=== PATIENT | male | born 1960 | race Caucasian/White ===

== ENCOUNTER 2024-11-13 09:58 | Emergency (ER) | payer OTHER ==
[~2024-11-13] VITALS: Ht 177.8 cm; Wt 88.6 kg
[2024-11-13 10:03] VITALS: TEMP 98
--- NOTE | 2024-11-13 10:10 | ELECTROCARDIOGRAPH REPORT ---
[facility] Test Date: 2024-11-13 Test Time: 10:00:56 Pat Name: PAVITHRA CUI Department: EMERGENCY ROOM Room: Gender: M Librarian Head: HUGH : 1960 Requested By: ANGELA MALONE Order Number: [id number] Reading MD: Measurements Intervals [place] Rate: 86 P: 62 CO: 155 QRS: 48 QRSD: 97 T: 32 QT: 361 QTc: 432 Interpretive Statements Sinus rhythm Please click the below link to view image of tracing.
[2024-11-13 10:38] LABS: MEAN PLATELET VOLUME 8.0 FL (7.4-10.4); RED CELL DISTRIBUTION WIDTH 12.3 % (11.5-14.5)
--- NOTE | 2024-11-13 10:58 | Physician Documentation ---
History of Present Illness ~ Chief Complaint: Shortness of Breath Stated Complaint: SOB Time Seen by MD: 10:45 Source: patient, family Mode of Arrival: POV Exam Limitations: no limitations HPI Patient who has been having some shortness of breath over the past month. It only happens when he is up and walking around or doing anything. At rest he feels fine. No chest pain. Mild cough since yesterday. Two months ago he did complete a 2 month cycle of radiation for prostate cancer. Back in June he was started on a medication to reduce his testosterone levels and 5 mg of prednisone daily. Does smoke marijuana most days. Quit tobacco smoking 13 years ago. Smoked 3/4 to a pack a day for 30 years. No swelling in his legs. Medication Reconciliation Allergies: Coded Allergies: No Known Allergies (Unverified , 11/13/24) Review of Systems All Other Systems at this time: Reviewed and Negative Physical Exam Vital Signs: Temperature: 98.0, Source: Temporal, Heart Rate: 87, Respiratory Rate: 19, BP: 122/78, Pulse Oximetry: 97, Weight: 88.640 General Appearance: alert Neck: normal inspection Respiratory: lungs clear, normal breath sounds, no respiratory distress Chest: no accessory muscle use Cardiovascular: regular rate, rhythm, no edema, no murmur Gastrointestinal: non-tender Extremities: normal inspection Skin: normal color, warm/dry Neurologic: oriented x4 Psychiatric: appropriate Progress Results/Orders Results/Orders Orders - ANGELA MALONE MD Chest,Single View (11/13/24 10:08) Monitor (11/13/24 10:08) Saline Lock (11/13/24 10:08) Oxygen (11/13/24 10:08) Covid19 Binax Poc Result Entry (11/13/24 10:47) Completed Orders - ANGELA MALONE MD Chest,Single View (11/13/24 10:08) Cbc/Diff (11/13/24 10:08) BMP (11/13/24 10:08) PBNP (11/13/24 10:08) Electrocardiogram (11/13/24 10:08) Hs Troponin I W Calculations (11/13/24 10:08) Hs Troponin I W Calculations (11/13/24 12:08) Hs Troponin I W Calculations (11/13/24 13:08) D-Dimer (11/13/24 10:47) Liver Panel (11/13/24 10:16) Vital Signs 11/13/24 11/13/24 11/13/24 11/13/24 10:03 10:50 11:12 13:31 Temp 98.0 Pulse 87 73 73 Resp 19 16 16 B/P (MAP) 122/78 130/70 (90) 123/76 Pulse Ox 97 98 96 O2 Flow Rate 0 Laboratory Tests Test 11/13/24 10:16 11/13/24 10:51 11/13/24 11:01 11/13/24 11:47 White Blood Count 5.7 Red Blood Count 4.20 L Hemoglobin 13.7 L Hematocrit 39.5 L Mean Corpuscular Volume 93.9 Mean Corpuscular Hemoglobin 32.6 H Mean Corpuscular Hemoglobin Concent 34.7 Red Cell Distribution Width 12.3 Platelet Count 198 Mean Platelet Volume 8.0 Neutrophils (%) (Auto) 89.5 H Lymphocytes (%) (Auto) 3.5 L Monocytes (%) (Auto) 4.5 Eosinophils (%) (Auto) 2.2 Basophils (%) (Auto) 0.3 Neutrophils # (Auto) 5.1 Lymphocytes # (Auto) 0.2 L Monocytes # (Auto) 0.3 Eosinophils # (Auto) 0.1 Basophils # (Auto) 0.0 CBC Comment Sodium Level 140 Potassium Level 4.0 Chloride Level 107 Carbon Dioxide Level 27.6 Anion Gap 5 L Blood Urea Nitrogen 14 Creatinine 0.87 Estimated GFR/1.73 m2 89 BUN/Creatinine Ratio 16.1 Glucose Level 98 Calcium Level 8.7 Total Bilirubin 1.5 H Direct Bilirubin 0.2 Aspartate Amino Transf (AST/SGOT) 16 Alanine Aminotransferase (ALT/SGPT) 21 Alkaline Phosphatase 115 Troponin I High Sensitivity 5 5 Pro-B-Type Natriuretic Peptide 397 H Total Protein 6.2 L Albumin 3.3 L Globulin 2.9 Albumin/Globulin Ratio 1.1 Chemistry Comments SARS-CoV-2 Antigen (Rapid) Positive A D-Dimer 0.45 D-Dimer Comment Troponin I High Sens Percent Delta 0 Troponin I Hi Sens Absolute Change 0 Test 11/13/24 12:47 Troponin I High Sensitivity 5 Troponin I High Sens Percent Delta 0 Troponin I Hi Sens Absolute Change 0 Medical Decision Making Additional Infomation Patient in with shortness of breath over the past month. Did test positive for COVID but I doubt this would cause these symptoms for a month. CT angio was negative for PE but did show some mild cardiomegaly. Troponin negative. Labs otherwise unremarkable. D-dimer was slightly bumped and that is what prompted the CT angio. I am recommending to the patient that he follow up with his PCP for echocardiogram for further evaluation of possible congestive heart failure. Discharged home in good condition with family. He is to return here if new or worsening symptoms prior to his follow up. Departure Disposition: HOME / SELF CARE / HOMELESS Impression: Primary Impression: COVID Condition: Stable Additional Instructions: Your BNP was elevated to 397 today. That is only slightly elevated. Given your symptoms over the last month this could be an indication of congestive heart failure. Your x-ray looks normal however this is not the best test for CHF as BNP is not the best test. Gold standard test for this would be echocardiogram which is an ultrasound of your heart. Your primary care provider can order this as an outpatient. You also have COVID which will need to run it's course. Return to the ER if any worsening of symptoms prior to follow up with your pcp. Your blood test for pulmonary embolism and heart attack were negative today. Referrals: NO PRIMARY CARE PROVIDER (PCP) Education Educated: Patient Educated regarding: diagnosis, treatment, prognosis, need for follow up Signature Scribe Signature: No scribe Attestation: ANGELA Lawrence MD Nov 13, 2024 10:57
[2024-11-13 11:02] LABS: CREATININE 0.87 MG/DL (0.60-1.10); PRO BRAIN NATRIURETIC PEPTIDE 397 PG/ML (0-125); TOTAL CARBON DIOXIDE 27.6 MMOL/L (24-32); eCRCL 91 ML/MIN; eGFR 89 ML/MIN
--- NOTE | 2024-11-13 11:10 | RADIOLOGY REPORT ---
EXAM: DI CHEST,SINGLE VIEW CLINICAL HISTORY: CP TECHNIQUE: Single PA view of the chest WID: COMPARISON: None FINDINGS: Lines and tubes: None Chest: The heart size and pulmonary vasculature is within normal limits. No pleural effusion, pneumothorax, or consolidation. The osseous structures are grossly intact. IMPRESSION: 1. No acute cardiopulmonary abnormality.
[2024-11-13 13:31] VITALS: BP 123/76; PULSE 73; RESP 16; O2SAT 96
== END 2024-11-13 13:32 | disposition home or self-care (01) ==
LOC: ER 09:59
DX: U07.1 COVID-19 (principal)
CPT/HCPCS: 36415; 71045; 80048; 80076; 83880; 84484; 85025; 85379; 87811; 93005; 99285